=== PATIENT | male | born 1995 | race Hispanic/Latino ===

== ENCOUNTER 2017-05-01 16:38 | Emergency (ER) | payer BC ==
[2017-05-01 17:08] VITALS: BP 139/61; PULSE 72; RESP 16; TEMP 98.2; O2SAT 100
--- NOTE | 2017-05-01 17:45 | ED PDOC ---
HPI: Skin/Bite Injury Time Seen by Provider: 05/01/17 17:40 Chief Complaint (Nursing): Abnormal Skin Integrity Chief Complaint (Provider): Cut to left side of face History Per: Patient History/Exam Limitations: no limitations Onset/Duration Of Symptoms: Days (1) Current Symptoms Are (Timing): Still Present Additional Complaint(s): Patient is a 21 y/o male with no significant past medical history presenting to the emergency department for a laceration on his left cheek sustained during a wrestling bout. Reports that he was kneed in the face during the incident and notes that he is able to ambulate. Denies loss of conscious, syncope, or other complaints. Tetanus shot status is unknown. PCP: none provided. Past Medical History Reviewed: Historical Data, Nursing Documentation, Vital Signs Vital Signs: Last Vital Signs Temp 98.2 F 05/01/17 17:06 Pulse 72 05/01/17 17:06 Resp 16 05/01/17 17:06 BP 139/61 05/01/17 17:06 Pulse Ox 100 05/01/17 19:12 - Medical History PMH: No Chronic Diseases - Family History Family History: States: No Known Family Hx - Allergies Allergies/Adverse Reactions: Allergies Allergy/AdvReac Type Severity Reaction Status Date / Time No Known Allergies Allergy Verified 05/01/17 17:06 Review of Systems ROS Statement: Except As Marked, All Systems Reviewed And Found Negative Skin: Positive for: Other (Cut on left cheek, with no active bleeding) Physical Exam - Reviewed Nursing Documentation Reviewed: Yes Vital Signs Reviewed: Yes - Physical Exam Appears: Positive for: Well, Non-toxic, No Acute Distress Head Exam: Positive for: NORMAL INSPECTION, NORMOCEPHALIC (with 2 cm, superficial and v-shaped left facial area laceration with moderate swelling and tenderness) Skin: Positive for: Normal Color, Warm, Dry Eye Exam: Positive for: Normal appearance Neck: Positive for: Normal Cardiovascular/Chest: Positive for: Regular Rate, Rhythm Respiratory: Negative for: Accessory Muscle Use, Respiratory Distress Extremity: Positive for: Normal ROM Neurologic/Psych: Positive for: Alert, Oriented (x3) - ECG O2 Sat by Pulse Oximetry: 100 (RA) Pulse Ox Interpretation: Normal Medical Decision Making Medical Decision Making: Time: 17:44 Initial impression: Laceration on left cheek Initial plan: * Facial/Orbital CT scan * Lidocaine 1 mL IJ New sterile dressing applied onto cheek laceration without complications. ~ Scribe Attestation: Documented by Patricia Patel, acting as a scribe for CHAPO Suárez. Provider Scribe Attestation: All medical record entries made by the Scribe were at my direction and personally dictated by me. I have reviewed the chart and agree that the record accurately reflects my personal performance of the history, physical exam, medical decision making, and the department course for this patient. I have also personally directed, reviewed, and agree with the discharge instructions and disposition. Disposition - Clinical Impression Clinical Impression: Facial contusion, Facial laceration - Patient ED Disposition Is Patient to be Admitted: No - Disposition Disposition: Routine/Home Disposition Time: 19:14 Condition: FAIR Additional Instructions: RETURN TO ED OR F/U WITH D/ STUDENT [facility] IN 5 DAYS FOR REMOVAL OF SUTURES Instructions: Laceration (DC), Facial Contusion (ED) Forms: [employer] (French) Procedure: Wound Repair - Time Performed Time Performed: 18:45 - Time Out Time Out: Side verified, Patient ID confirmed - Consent Obtained Consent obtained: Verbal - Performed by Performed by: Mid-level Provider - Indications Indication(s):: Laceration - Location Location:: Left, Face Shape:: Other (V shaped) Dimensions Length cm: 2 Depth:: Epidermis - Patient tolerated procedure Patient Tolerated Procedure:: Well Procedures - Laceration left face Site: face Side (if applicable): left Size (cm): 2 Description: other (V-shaped) Size: other (7:0) Number of sutures: 6
[2017-05-01] MEDS ORDERED: Lidocaine 2% w Epi 1:100,000 Inj IJ ONE ×2 (17:46→18:26)
--- NOTE | 2017-05-01 18:41 | CT ---
PROCEDURE: CT ORBITS WITHOUT CONTRAST. HISTORY: Facial injury COMPARISON: None available. TECHNIQUE: Axial CT images of the orbits were obtained. Coronal and sagittal reformats were generated. Radiation dose: Total exam DLP = 798.58 mGy-cm. This CT exam was performed using one or more of the following dose reduction techniques: Automated exposure control, adjustment of the mA and/or kV according to patient size, and/or use of iterative reconstruction technique. FINDINGS: RIGHT ORBIT: RIGHT BONY ORBIT: Normal. RIGHT INTRAORBITAL STRUCTURES: Globe: Normal. Extraocular muscles: Normal. Post septal space: Normal. Optic Nerve: Normal. Lacrimal Apparatus: Normal. RIGHT PRESEPTAL SOFT TISSUES: Normal. LEFT ORBIT: LEFT BONY ORBIT: Normal. LEFT INTRAORBITAL STRUCTURES: Globe: Normal. Extraocular muscles: Normal. Post septal space: Normal Optic Nerve: Normal. . Lacrimal Apparatus: Normal. LEFT PRESEPTAL SOFT TISSUES: Normal. OTHER: There is mild left facial soft tissue swelling. There is mild mucosal thickening in the right maxillary sinus. The nasal septum is deviated to the left with a large bony septal spur which indents the left inferior turbinate. There is obstruction of the right ostiomeatal unit. IMPRESSION: Mild left facial soft tissue swelling. No evidence of acute nasal bone, orbital or maxillofacial fracture.
== END 2017-05-01 19:22 | disposition home or self-care (01) ==
LOC: H.ER 16:38
DX: S00.83XA Contusion of other part of head, initial encounter (principal); S01.412A Laceration without foreign body of left cheek and temporomandibular area, initial encounter; Y93.72 Activity, wrestling

== ENCOUNTER 2018-02-23 17:21 | Emergency (ER) | payer BC ==
[2018-02-23 17:52] VITALS: BP 146/74; PULSE 100; RESP 20; TEMP 98.7; O2SAT 99
[2018-02-23 18:31] LABS: BASO % 0.4 % (0.0-2.0); EOS # 0.1 K/uL (0.0-0.7); EOS % 0.7 % (0.0-4.0); HEMOGLOBIN 15.3 g/dL (12.0-18.0); LYMPH # 1.3 K/uL (1.0-4.3); LYMPH % 13.3 % (20.0-40.0); MEAN CELL VOLUME 85.9 fl (80.0-94.0); MEAN CORPUSCULAR HEMOGLOBIN 29.4 pg (27.0-31.0); MEAN CORPUSCULAR HGB CONC 34.3 g/dL (33.0-37.0); MEAN PLATELET VOLUME 7.2 fl (7.2-11.7); MONO # 0.6 K/uL (0.0-0.8); MONO % 6.4 % (0.0-10.0); NEUT # 7.8 K/uL (1.8-7.0); NEUT % 79.2 % (50.0-75.0); RBC 5.2 Mil/uL (4.40-5.90); WHITE BLOOD COUNT 9.8 K/uL (4.8-10.8)
--- NOTE | 2018-02-23 18:37 | ED PDOC ---
HPI: Dental Pain/Injury Time Seen by Provider: 02/23/18 17:50 Chief Complaint (Nursing): Dental Pain Chief Complaint (Provider): Dental Pain History Per: Patient History/Exam Limitations: no limitations Onset/Duration Of Symptoms: Days (x3) Current Symptoms Are (Timing): Still Present Additional Complaint(s): 22-year-old male presenting for evaluation of left ear pain and swelling to left jawline x3 days. Patient denies any fever or chills. He reports this morning he was shivering a bit, but states he feels this was due to drinking the previous evening. He denies taking any medications for symptoms at home. Past Medical History Reviewed: Historical Data, Nursing Documentation, Vital Signs Vital Signs: Last Vital Signs Temp 98.7 F 02/23/18 17:50 Pulse 100 H 02/23/18 17:50 Resp 20 02/23/18 17:50 BP 146/74 02/23/18 17:50 Pulse Ox 99 02/23/18 17:50 - Medical History PMH: No Chronic Diseases - Surgical History Surgical History: No Surg Hx - Family History Family History: States: Unknown Family Hx - Home Medications Home Medications: Ambulatory Orders Medication Instructions Recorded Amoxicillin/Clavulanate [Augmentin 1 tab PO BID #20 tab 02/23/18 875 MG-125 MG] - Allergies Allergies/Adverse Reactions: Allergies Allergy/AdvReac Type Severity Reaction Status Date / Time No Known Allergies Allergy Verified 02/23/18 17:50 Review of Systems ROS Statement: Except As Marked, All Systems Reviewed And Found Negative Constitutional: Negative for: Fever, Chills ENT: Positive for: Ear Pain (left), Other (swelling at left jawline) Physical Exam - Reviewed Nursing Documentation Reviewed: Yes Vital Signs Reviewed: Yes - Physical Exam Appears: Positive for: Non-toxic, No Acute Distress Head Exam: Positive for: ATRAUMATIC Skin: Positive for: Normal Color, Warm Eye Exam: Positive for: Normal appearance ENT: Positive for: TM Is/Are (erythema to left TM), Other Neck: Negative for: Normal (swelling noted to left anterior cervical lymph nodes ) Respiratory: Negative for: Respiratory Distress Neurologic/Psych: Positive for: Alert - Laboratory Results Result Diagrams: 02/23/18 18:26 02/23/18 18:26 - ECG O2 Sat by Pulse Oximetry: 99 (RA) Pulse Ox Interpretation: Normal Medical Decision Making Medical Decision Making: Plan: -CMP -CBC Discussed need to follow up with PMD if symptoms dont improve after course of antibiotics. Provided patient with copy of lab results. Scribe Attestation: Documented by Eber Roca, acting as a scribe for Magalie Sharif PA-C. Provider Scribe Attestation: All medical record entries made by the scribe were at my direction and personally dictated by me. I have reviewed the chart and agree that the record accurately reflects my personal performance of the history, physical exam, medical decision making, and the department course for this patient. I have also personally directed, reviewed, and agree with the discharge instructions and disposition. Disposition - Clinical Impression Clinical Impression: Otitis media - Patient ED Disposition Is Patient to be Admitted: No Counseled Patient/Family Regarding: Diagnosis, Need For Followup, Rx Given - Disposition Referrals: Padmini Dale MD [Staff Provider] - Disposition: Routine/Home Disposition Time: 18:52 Condition: STABLE Prescriptions: Amoxicillin/Clavulanate [Augmentin 875 MG-125 MG] 1 tab PO BID #20 tab Instructions: Ear Infections (Otitis Media) Forms: [employer] (Yi)
[2018-02-23 18:45] LABS: ALB/GLOB RATIO 1.6 (1.0-2.1); ALBUMIN 5.1 g/dL (3.5-5.0); ALT/SGPT 26 U/L (21-72); AST/SGOT 30 U/L (17-59); BLOOD UREA NITROGEN 18 mg/dl (9-20); CALCIUM 9.9 mg/dL (8.4-10.2); GFR AFRICAN-AMERICAN > 60; GFR NON-AFRICAN AMERICAN > 60
== END 2018-02-23 21:09 | disposition home or self-care (01) ==
LOC: H.ER 17:21
DX: H66.92 Otitis media, unspecified, left ear (principal)